=== PATIENT | female | born 1995 | race Caucasian/White ===

== ENCOUNTER 2017-11-15 12:16 | Outpatient (CLI) | payer MEDICAID ==
[2017-11-15 13:19] LABS: ADD UMIC NO; UR ASCORBIC ACID NEGATIVE (NEGATIVE); UR BACTERIA MANY /HPF (NONE SEEN); UR BILIRUBIN (Dip) NEGATIVE (NEGATIVE); UR BLOOD (Dip) NEGATIVE (NEGATIVE); UR CLARITY SLIGHTLY CLOUDY (CLEAR); UR COLOR YELLOW (YELLOW); UR GLUCOSE (Dip) NEGATIVE (NEGATIVE); UR KETONES (Dip) NEGATIVE (NEGATIVE); UR LEUKOCYTE ESTERASE (Dip) NEGATIVE Leu/ul (NEGATIVE); UR NITRITE (Dip) NEGATIVE (NEGATIVE); UR RBC 0 /HPF (0-5); UR SQUAMOUS EPITHELIAL CELL FEW /HPF (FEW); UR TOTAL PROTEIN (Dip) NEGATIVE (NEGATIVE); UR UROBILINOGEN (Dip) NEGATIVE (NEGATIVE); UR WBC 7 /HPF (0-5)
== END 2017-11-15 14:40 | disposition home or self-care (01) ==
LOC: OBT 12:16 → L-D 12:17 → OBT 14:40
DX: O36.8130 Decreased fetal movements, third trimester, not applicable or unspecified (principal); Z3A.35 35 weeks gestation of pregnancy
CPT/HCPCS: 76818; 81001; 81003; 87086

== ENCOUNTER 2017-12-11 04:35 | Outpatient (CLI) | payer MEDICAID ==
[2017-12-11 09:01] LABS: ADD UMIC NO; UR ASCORBIC ACID NEGATIVE (NEGATIVE); UR BACTERIA FEW /HPF (NONE SEEN); UR BILIRUBIN (Dip) NEGATIVE (NEGATIVE); UR BLOOD (Dip) NEGATIVE (NEGATIVE); UR CLARITY SLIGHTLY CLOUDY (CLEAR); UR COLOR YELLOW (YELLOW); UR GLUCOSE (Dip) NEGATIVE (NEGATIVE); UR KETONES (Dip) NEGATIVE (NEGATIVE); UR LEUKOCYTE ESTERASE (Dip) NEGATIVE Leu/ul (NEGATIVE); UR MUCUS FEW /HPF (NONE SEEN); UR NITRITE (Dip) NEGATIVE (NEGATIVE); UR RBC 0 /HPF (0-5); UR SPECIFIC GRAVITY (Dip) 1.014 (1.003-1.030); UR SQUAMOUS EPITHELIAL CELL FEW /HPF (FEW); UR TOTAL PROTEIN (Dip) NEGATIVE (NEGATIVE); UR UROBILINOGEN (Dip) NEGATIVE (NEGATIVE); UR WBC 1 /HPF (0-5)
== END 2017-12-11 10:13 | disposition home or self-care (01) ==
LOC: OBT 04:35 → L-D 04:40 → OBT 10:13
DX: O62.9 Abnormality of forces of labor, unspecified (principal); Z3A.38 38 weeks gestation of pregnancy
CPT/HCPCS: 76818; 81001; 81003; 87086

== ENCOUNTER 2017-12-20 08:10 | Outpatient (CLI) | payer MEDICAID | END 2017-12-20 11:10 | disposition home or self-care (01) | LOC: OBT 08:10 → L-D 08:10 → OBT 11:10 | DX: O35.8XX0 Maternal care for other (suspected) fetal abnormality and damage, not applicable or unspecified (principal); Z3A.40 40 weeks gestation of pregnancy | CPT/HCPCS: 76818 ==

== ENCOUNTER 2017-12-23 21:31 | Inpatient (IN) | payer MEDICAID ==
[2017-12-24] MEDS ORDERED: MISOPROSTOL 200 MCG TAB PR (00:30)
[2017-12-24] MEDS ORDERED: LIDOCAINE 1% (MPF) 30 ML INJ INJ (00:30)
[2017-12-24] MEDS ORDERED: OXYTOCIN 30 UNITS/LR 500 ML IV ×2 (00:30)
[2017-12-24] MEDS ORDERED: BUTORPHANOL 1 MG INJ IV (00:30)
[2017-12-24] MEDS ORDERED: IBUPROFEN 600 MG TAB PO (00:30)
[2017-12-24] MEDS ORDERED: BUTORPHANOL 2 MG INJ IV (00:30)
[2017-12-24] MEDS ORDERED: CARBOPROST 250 MCG INJ IM (00:30)
[2017-12-24 01:13] LABS: ADD MAN DIFF? NO
[2017-12-24 01:19] LABS: WHITE BLOOD COUNT 12.9 10^3/ul (4.8-10.8)
[2017-12-24 01:19] LABS: BASOPHIL # 0.1 10^3/ul (0.0-0.1); BASOPHILS % 0.6 % (0.0-2.0); EOSINOPHILS # 0.2 10^3/ul (0.0-0.5); EOSINOPHILS % 1.5 % (0.0-7.0); HEMATOCRIT 35.3 % (37.0-47.0); HEMOGLOBIN 12.2 g/dl (12.0-16.0); LYMPHOCYTES # 3.1 10^3/ul (0.8-2.9); MEAN CORPUSCULAR HEMOGLOBIN 30.9 pg (29.0-33.0); MEAN CORPUSCULAR HGB CONC 34.6 g/dl (32.0-37.0); MEAN CORPUSCULAR VOLUME 89.4 fl (82.0-101.0); MONOCYTES % 7.5 % (0.0-11.0); NEUTROPHIL # 8.3 10^3/ul (1.6-7.5); NEUTROPHILS % 64.1 % (39.0-77.0); PLATELET COUNT 226 10^3/UL (140-415); RED BLOOD COUNT 3.95 10^6/ul (4.20-5.40)
[2017-12-24 01:39] LABS: INR 0.92; PROTIME 12.4 Sec (11.9-14.9)
[2017-12-24 01:40] LABS: PARTIAL THROMBOPLASTIN TIME 25.8 Sec (25.0-35.0)
[2017-12-24] MEDS: LACTATED RINGER'S 1,000 ML IV* ×3 (02:53→17:58)
[2017-12-24] MEDS: DINOPROSTONE 10 MG VAG SUPP VAG ×2 (02:53→03:04)
[2017-12-24 03:13] LABS: HEPATITIS B SURFACE ANTIGEN NEGATIVE (NEGATIVE)
[2017-12-24 06:41] LABS: ADD UMIC NO; UR ASCORBIC ACID NEGATIVE (NEGATIVE); UR BILIRUBIN (Dip) NEGATIVE (NEGATIVE); UR BLOOD (Dip) NEGATIVE (NEGATIVE); UR CLARITY CLEAR (CLEAR); UR COLOR YELLOW (YELLOW); UR GLUCOSE (Dip) NEGATIVE (NEGATIVE); UR KETONES (Dip) NEGATIVE (NEGATIVE); UR LEUKOCYTE ESTERASE (Dip) NEGATIVE Leu/ul (NEGATIVE); UR NITRITE (Dip) NEGATIVE (NEGATIVE); UR SPECIFIC GRAVITY (Dip) 1.009 (1.003-1.030); UR TOTAL PROTEIN (Dip) NEGATIVE (NEGATIVE); UR UROBILINOGEN (Dip) NEGATIVE (NEGATIVE)
[2017-12-24 20:01] LABS: RAPID PLASMA REAGIN NONREACTIVE (NR)
[2017-12-25] MEDS: LACTATED RINGER'S 1,000 ML IV* ×4 (01:01→22:12)
[2017-12-25] MEDS: MISOPROSTOL 25 MCG CAPSULE PO ×5 (05:42→21:00)
[2017-12-25] MEDS: LACTATED RINGER'S 1,000 ML IV (15:57)
[2017-12-25] MEDS ORDERED: DIPHENHYDRAMINE 50 MG INJ IV (16:30)
[2017-12-25] MEDS ORDERED: EPHEDrine SULFATE 50 MG/5 ML SYG IV (16:30)
[2017-12-25] MEDS ORDERED: ONDANSETRON 4 MG INJ IV (16:30)
[2017-12-25] MEDS ORDERED: NALOXONE (0.4 MG/ML) INJ IV (16:30)
[2017-12-25] MEDS ORDERED: FENTAnyl 2MCG/ML-ROPIV 0.2% 100 ML (16:38)
[2017-12-25] MEDS: FENTAnyl 2MCG/ML-ROPIV 0.2% 100 ML BAG EPI (18:01)
[2017-12-25] MEDS: AMPICILLIN 2 GM/NS (PMX) 100 ML IV (18:30)
[2017-12-25] MEDS: AMPICILLIN 1 GM/NS (PMX) 50 ML IV (22:10)
[2017-12-26] MEDS: MISOPROSTOL 25 MCG CAPSULE PO ×2 (01:00→05:00)
[2017-12-26] MEDS: AMPICILLIN 1 GM/NS (PMX) 50 ML IV (02:37)
[2017-12-26] MEDS: FENTAnyl 2MCG/ML-ROPIV 0.2% 100 ML BAG EPI (02:38)
[2017-12-26] MEDS: OXYTOCIN 30 UNITS/LR 500 ML IV ×2 (05:09→05:41)
[2017-12-26] MEDS: METHYLERGONOVINE 0.2 MG INJ IM (05:11)
[2017-12-26] MEDS: LACTATED RINGER'S 1,000 ML IV* ×2 (05:29→15:59)
[2017-12-26] MEDS ORDERED: OXYTOCIN 30 UNITS/LR 500 ML IV (05:30)
[2017-12-26] MEDS ORDERED: METHYLERGONOVINE 0.2 MG INJ IM (05:30)
[2017-12-26] MEDS ORDERED: HYDROCODONE/APAP (5/325) TAB PO (05:30)
[2017-12-26] MEDS ORDERED: CARBOPROST 250 MCG INJ IM (05:30)
[2017-12-26] MEDS ORDERED: MISOPROSTOL 200 MCG TAB PR (05:30)
[2017-12-26] MEDS: IBUPROFEN 600 MG TAB PO ×4 (15:59→23:57)
[2017-12-26] MEDS: AMOXICILLIN/CLAV 500 MG TAB PO (22:59)
[2017-12-27] MEDS: IBUPROFEN 600 MG TAB PO ×3 (05:33→18:10)
[2017-12-27] MEDS: AMOXICILLIN/CLAV 500 MG TAB PO ×3 (05:33→21:57)
[2017-12-27 11:16] LABS: ADD MAN DIFF? NO
[2017-12-27 11:20] LABS: WHITE BLOOD COUNT 12.9 10^3/ul (4.8-10.8)
[2017-12-27 11:20] LABS: BASOPHIL # 0.1 10^3/ul (0.0-0.1); BASOPHILS % 0.5 % (0.0-2.0); EOSINOPHILS # 0.2 10^3/ul (0.0-0.5); EOSINOPHILS % 1.5 % (0.0-7.0); HEMATOCRIT 29.4 % (37.0-47.0); HEMOGLOBIN 9.8 g/dl (12.0-16.0); LYMPHOCYTES # 2.1 10^3/ul (0.8-2.9); LYMPHOCYTES % 16.4 % (15.0-51.0); MEAN CORPUSCULAR HEMOGLOBIN 30.1 pg (29.0-33.0); MEAN CORPUSCULAR HGB CONC 33.3 g/dl (32.0-37.0); MEAN CORPUSCULAR VOLUME 90.2 fl (82.0-101.0); MEAN PLATELET VOLUME 11.2 fl (7.4-10.4); MONOCYTE # 0.9 10^3/ul (0.3-0.9); MONOCYTES % 6.7 % (0.0-11.0); NEUTROPHIL # 9.4 10^3/ul (1.6-7.5); PLATELET COUNT 185 10^3/UL (140-415); RED BLOOD COUNT 3.26 10^6/ul (4.20-5.40); RED CELL DISTRIBUTION WIDTH 13.4 % (11.5-14.5)
[2017-12-28] MEDS: IBUPROFEN 600 MG TAB PO ×3 (00:39→11:51)
[2017-12-28] MEDS: AMOXICILLIN/CLAV 500 MG TAB PO (06:14)
[2017-12-28] MEDS: DIPHTH/TET/ACEL PERTUSS (ADULT) 0.5 ML VIAL IM* (09:00)
== END 2017-12-28 13:45 | disposition home or self-care (01) | DRG 775 ==
LOC: OBT 21:31 → PP1 12-26 15:33 → L-D 21:31
PROVIDERS: Obstetrics & Gynecology
PROC: 10E0XZZ Delivery of Products of Conception, External Approach (ICD-10-PCS; principal; 2017-12-26)
PROC: 3E033VJ Introduction of Other Hormone into Peripheral Vein, Percutaneous Approach (ICD-10-PCS; 2017-12-26)
PROC: 3E0P7VZ Introduction of Hormone into Female Reproductive, Via Natural or Artificial Opening (ICD-10-PCS; 2017-12-26)
PROC: 0HQ9XZZ Repair Perineum Skin, External Approach (ICD-10-PCS; 2017-12-26)
DX: O48.0 Post-term pregnancy (principal); Z3A.40 40 weeks gestation of pregnancy; Z37.0 Single live birth; O70.9 Perineal laceration during delivery, unspecified
CPT/HCPCS: 62319; 76815; 76818; 81003; 85025; 85610; 85730; 86592; 86850; 86900; 86901; 87086; 87340; 99464